=== PATIENT | male | born 1965 | race Caucasian/White ===

== ENCOUNTER 2017-07-27 08:49 | Emergency (ER) | payer OTHER ==
[2017-07-27 10:49] LABS: ADD MAN DIFF? NO
[2017-07-27 10:59] LABS: BASOPHILS % 0.4 % (0.0-2.0); EOSINOPHILS # 0.2 10^3/ul (0.0-0.5); EOSINOPHILS % 2.5 % (0.0-7.0); HEMATOCRIT 42.2 % (42.0-52.0); HEMOGLOBIN 14.7 g/dl (14.0-18.0); LYMPHOCYTES # 1.8 10^3/ul (0.8-2.9); LYMPHOCYTES % 25.6 % (15.0-51.0); MEAN CORPUSCULAR HEMOGLOBIN 28.3 pg (29.0-33.0); MEAN CORPUSCULAR HGB CONC 34.8 g/dl (32.0-37.0); MEAN CORPUSCULAR VOLUME 81.3 fl (82.0-101.0); MEAN PLATELET VOLUME 9.2 fl (7.4-10.4); MONOCYTE # 0.4 10^3/ul (0.3-0.9); MONOCYTES % 5.5 % (0.0-11.0); NEUTROPHIL # 4.7 10^3/ul (1.6-7.5); NEUTROPHILS % 65.9 % (39.0-77.0); PLATELET COUNT 226 10^3/UL (140-415); RED BLOOD COUNT 5.19 10^6/ul (4.70-6.10); RED CELL DISTRIBUTION WIDTH 12.3 % (11.5-14.5)
[2017-07-27 10:59] LABS: WHITE BLOOD COUNT 7.1 10^3/ul (4.8-10.8)
[2017-07-27] MEDS: ONDANSETRON 4 MG INJ IV (10:59)
[2017-07-27] MEDS: morphine 4 MG/ML VIAL IV (11:00)
[2017-07-27] MEDS: SOD CHLORIDE 0.9% 1,000 ML IV (11:00)
[2017-07-27 11:17] LABS: ANION GAP 13 (8-16); BLOOD UREA NITROGEN 13 mg/dl (7-20); CALCIUM 9.9 mg/dl (8.4-10.2); CARBON DIOXIDE 33 mmol/L (21-31); CHLORIDE 102 mmol/L (97-110); GLUCOSE 103 mg/dl (70-220); POTASSIUM 3.9 mmol/L (3.5-5.1); SODIUM 144 mmol/L (135-144)
[2017-07-27 12:29] LABS: ERYTHROCYTE SEDIMENTATION RATE 20 mm/Hr (0-20)
[2017-07-27 13:14] LABS: C-REACTIVE PROTEIN 2.4 mg/dl (0.0-0.9)
== END 2017-07-27 13:43 | disposition home or self-care (01) ==
LOC: FTE 08:49
DX: M25.561 Pain in right knee (principal); I10 Essential (primary) hypertension
CPT/HCPCS: 36415; 73562; 80048; 85025; 85651; 86140; 96374; 96375; 99284-25

== ENCOUNTER 2019-02-27 16:44 | Emergency (ER) | payer OTHER ==
[2019-02-27] MEDS: IBUPROFEN 800 MG TAB PO (19:17)
[2019-02-27] MEDS: HYDROCODONE/APAP (5/325) TAB PO (19:18)
[2019-02-27] MEDS: LIDOCAINE 2%/EPI MPF (SDV) 20 ML VIAL INJ (19:19)
[2019-02-27] MEDS: DIPHTH/TET/ACEL PERTUSS (ADULT) 0.5 ML VIAL IM* (19:19)
== END 2019-02-27 21:01 | disposition home or self-care (01) ==
LOC: FTE 16:44
DX: S51.811A Laceration without foreign body of right forearm, initial encounter (principal); I10 Essential (primary) hypertension; W25.XXXA Contact with sharp glass, initial encounter; Y92.89 Other specified places as the place of occurrence of the external cause; Z23 Encounter for immunization
CPT/HCPCS: 73090; 73090-RT; 90471; 90715; 99283-25